=== PATIENT | male | born 1950 | race Caucasian/White ===

== ENCOUNTER 2017-08-02 10:01 | Emergency (ER) | payer BC, OTHER ==
[2017-08-02 10:17] VITALS: BP 111/59; BMI 24.1
--- NOTE | 2017-08-02 10:38 | DR.GENAD ---
HPI - HPI Comment HPI Comment: NO SOB, SOME DYSPHAGIA NOTED. NO BLEEDING. HISTORY LIVER CIRRHOSIS. CURRENTLY WORKING WITH HIS DOCTOR FOR LIVER TRANSPLANT. CURRENT SYMTOM STARTED 2 DAYS AGO. - Complaint/Symptoms Chief Complaint Doctors Comments: PATIENT HAVE SENSATION OF SOMETHING AT BACK OF HIS TONGUE GOING INTO THE THROAT. Chief Complaint:: "something in my throat or on my tongue it started two days ago" - Nurses notes reviewed Nurses Notes Review: Yes - Source History Provided: Patient - Mode of Arrival Mode of Arrival: Ambulatory - Timing Onset of Chief Complaint: 07/31/17 Came on: Suddenly - Duration Duration: Constant Duration: Days - Severity Severity: Moderate PMH - PMH Past Medical History: Yes Past Medical History: Hypertension Past Medical History Comment: Liver failure, Past Surgical History: Yes Surgical History: Appendectomy, Cholecystectomy Past Surgical History Comment: Right knee, pacemaker - Family History History of Family Medical Conditions: No - Social History Does patient currently use any type of tobacco product: No Have you used tobacco products in the last 12 months: No Type of Tobacco Use: None Does any household member use tobacco: No Alcohol Use: None Do you use any recreational Drugs:: No Lives With: Family Lives Where: Home - infectious screening In the last 2 months have you had wt loss of >10#?: NO Have you had fever, night sweats or hemotysis?: No Have you traveled outside the country in the last 6 months?: No Isolation: Standard ROS - Review of Systems Constitutional: Weakness, Fatigue. negative: Chills, Fever Eyes: negative: Eye Pain, Discharge ENTM: Throat Pain, Throat Swelling (FEEL SOMETHING STUCK AT BACK OF MOUTH AT BASE OF OF TONGUE.). negative: Ear Pain, Nose Discharge, Nose Congestion, Mouth Swelling Respiratoy: Short of Breath. negative: Productive Cough, Non-Productive Cough, Wheezing, Hemoptysis Cardiovascular: negative: Chest Pain Gastrointestinal/Abdominal: Abdominal Pain. negative: Nausea Genitourinary: negative: Dysuria, Hematuria Neurological: Headache, Weakness, Dizziness Musculoskeletal: Muscle Pain Integumentary: Dryness, Itching Hematologic/Lymphatic: Easy Bleeding, Easy Bruising All Other Systems: Reviewed and Negative PE - Vital Signs Vitals: Temperature 98.1 F Pulse Rate 75 Respiratory Rate 18 Blood Pressure 111/59 O2 Sat by Pulse Oximetry 100 - General Limitations: No Limitations General Appearance: Alert, In Distress (MILD) - Head Head Exam: Normal Inspection - Eyes Eye exam: PERRL, EOMI. negative: Scleral Icterus, Conjunctival Injection - ENT ENT Exam: Normal External Ear Exam External Ear Exam: Normal External Inspection TM/Canal Exam: Bilateral Normal Nose Exam: Normal Nose Exam Mouth Exam: Normal Inspection Throat Exam: Normal Inspection - Neck Neck Exam: Trachea Midline - Chest Chest Inspection: Symmetric Chest Wall Rise - Respiratory Respiratory Exam: Normal Lung Sounds Bilat Respiratory Exam: Bilateral Rhonchi, Lower Rhonchi - Cardiovascular Cardiovascular Exam: Regular Rate, Normal Rhythm, Normal Heart Sounds - Abdominal Exam Abdominal Exam: Normal Bowel Sounds, Soft, Tenderness Abdominal Tenderness: Diffuse, Moderate - Extremities Extremities Exam: Normal Inspection - Back Back Exam: Normal Inspection - Neurologic Neurological Exam: Alert, Oriented X3 - Psychiatric Psychiatric Exam: Anxious - Skin Skin Exam: Erythema MDM - Additional Information Additional Information Obtained From: Family - Differential Diagnosis Differential Diagnosis: PHARYNGITIS, THROAT MASS, FOOD STUCK IN THROAT Course - Treatment Treatment: SEE ORDERS. PATIENT HAVE SODIUM THAT IS LOW. DO NOT WISH TO STAY IN HOSPITAL WILL GO TO HIS DOCTOR WHO IS OUT OF TOWN. HE AND HIS WILL TALK TO HIS DR. THEY DONT WANT ME TO DR. TO HIS DR. HE IS DISCHARGE AMA. - Education/Counseling Education/Counseling: Patient, Family, Education Educated On: Diagnosis ROR - Labs Reviewed Laboratory Results Reviewed?: Yes Result Diagrams: 08/02/17 10:45 08/02/17 10:45 Laboratory: WBC 7.6 X10^3/uL (3.6-10.0) 08/02/17 10:45 RBC 2.63 X10^6/uL (4.7-6.0) L 08/02/17 10:45 Hgb 7.3 g/dL (13.5-18.0) L 08/02/17 10:45 Hct 22.0 % (42.0-54.0) L 08/02/17 10:45 MCV 83.6 fL (80.0-100.0) 08/02/17 10:45 MCH 27.8 pg (27.0-34.0) 08/02/17 10:45 MCHC 33.2 g/dL (33.0-35.0) 08/02/17 10:45 RDW 20.4 % (11.6-16.5) H 08/02/17 10:45 Plt Count 194 X10^3/uL (150.0-450.0) 08/02/17 10:45 Plt Count Comment Adequate (ADEQUATE) 08/02/17 10:45 MPV 8.3 fL (7.4-11.0) 08/02/17 10:45 Neut % 76.3 % (42.0-75.0) H 08/02/17 10:45 Lymph % 7.7 % (21.0-51.0) L 08/02/17 10:45 [place] % 15.5 % (0.0-13.0) H 08/02/17 10:45 Eos % 0.0 % (0.9-2.9) L 08/02/17 10:45 Baso % 0.5 % (0.2-1.0) 08/02/17 10:45 Neut # 5.8 x10^3/uL (2.2-4.8) H 08/02/17 10:45 Lymph # 0.6 X10^3/uL (1.3-2.9) L 08/02/17 10:45 [place] # 1.2 x10^3/uL (0.3-0.8) H 08/02/17 10:45 Eos # 0.0 x10^3/uL (0.0-0.2) 08/02/17 10:45 Baso # 0.0 X10^3/uL (0.0-0.1) 08/02/17 10:45 Absolute Nucleated RBC 0.0 /100WBC 08/02/17 10:45 Plt Morphology Comment Normal (NORMAL) 08/02/17 10:45 RBC Morphology Abnormal (NORMAL) 08/02/17 10:45 Hypochromasia 2+ A 08/02/17 10:45 Poikilocytosis Slight A 08/02/17 10:45 Anisocytosis 1+ A 08/02/17 10:45 Microcytosis Slight A 08/02/17 10:45 Target Cells Slight A 08/02/17 10:45 Sodium 124 mmol/L (136-145) L* 08/02/17 10:45 Corrected Sodium TNP 08/02/17 10:45 Potassium 5.2 mmol/L (3.5-5.1) H 08/02/17 10:45 Chloride 91 mmol/L (98-107) L 08/02/17 10:45 Carbon Dioxide 23.2 mmol/L (21-32) 08/02/17 10:45 BUN 37 mg/dL (7-18) H 08/02/17 10:45 Creatinine 1.35 mg/dL (0.70-1.30) H 08/02/17 10:45 Est GFR (MDRD) Af Amer > 60 (>60) 08/02/17 10:45 Est GFR (MDRD) Non-Af 56 (>60) L 08/02/17 10:45 Glucose 109 mg/dL (65-99) H 08/02/17 10:45 Calcium 8.8 mg/dL (8.5-10.1) 08/02/17 10:45 Corrected Calcium TNP 08/02/17 10:45 Total Bilirubin 1.00 mg/dL (0.2-1.0) 08/02/17 10:45 AST 19 Units/L (15-37) 08/02/17 10:45 ALT 16 Units/L (12-78) 08/02/17 10:45 Alkaline Phosphatase 119 Units/L (46-116) H 08/02/17 10:45 Total Protein 8.0 g/dL (6.4-8.2) 08/02/17 10:45 Albumin 3.5 g/dL (3.4-5.0) 08/02/17 10:45 Globulin 4.5 g/dL (2.5-4.5) 08/02/17 10:45 Albumin/Globulin Ratio 0.8 Ratio (1.1-2.1) L 08/02/17 10:45 - XRAY XRAY Interpreted by: Radiologist XRAY Findings: REPORT DISCUSS WITH PATIENT. - Diagnosis Discharge Problem: Throat pain, Hyponatremia Dysphagia Qualifiers: Dysphagia type: unspecified Qualified Code(s): R13.10 - Dysphagia, unspecified Liver cirrhosis Qualifiers: Hepatic cirrhosis type: unspecified hepatic cirrhosis Ascites presence: with ascites Qualified Code(s): K74.60 - Unspecified cirrhosis of liver - Discharge Plan Disposition: AGAINST MEDICAL ADVICE Condition: Stable - Follow ups/Referrals Follow ups/Referrals: NFD,None [Primary Care Provider] - 3 days - Instructions Instructions: Therapeutic Phlebotomy, Care After, Hyponatremia, Cirrhosis Additional Instructions: RETURN TO [facility] IF WORSE. YOU ARE DISCHARGE AMA/ AGAINST MEDICAL ADVICE.
[2017-08-02 11:05] LABS: BLOOD UREA NITROGEN 37 mg/dL (7-18); CALCIUM 8.8 mg/dL (8.5-10.1); CARBON DIOXIDE 23.2 mmol/L (21-32); CHLORIDE 91 mmol/L (98-107); CREATININE 1.35 mg/dL (0.70-1.30); eGFR BLACK RACES > 60 (>60); eGFR NON BLACK RACES 56 (>60)
[2017-08-02 11:08] LABS: BASOPHILS % (AUTO) 0.5 % (0.2-1.0); HEMOGLOBIN 7.3 g/dL (13.5-18.0); LYMPHOCYTES # (AUTO) 0.6 X10^3/uL (1.3-2.9); LYMPHOCYTES % (AUTO) 7.7 % (21.0-51.0); MEAN CORPUSCULAR HEMOGLOBIN 27.8 pg (27.0-34.0); MEAN CORPUSCULAR HGB CONC 33.2 g/dL (33.0-35.0); MEAN CORPUSCULAR VOLUME 83.6 fL (80.0-100.0); MEAN PLATELET VOLUME 8.3 fL (7.4-11.0); MONOCYTES # (AUTO) 1.2 x10^3/uL (0.3-0.8); MONOCYTES % (AUTO) 15.5 % (0.0-13.0); NEUTROPHILS # (AUTO) 5.8 x10^3/uL (2.2-4.8); NEUTROPHILS % (AUTO) 76.3 % (42.0-75.0); PLATELET COUNT 194 X10^3/uL (150.0-450.0); RED BLOOD COUNT 2.63 X10^6/uL (4.7-6.0); RED CELL DISTRIBUTION WIDTH 20.4 % (11.6-16.5); WHITE BLOOD COUNT 7.6 X10^3/uL (3.6-10.0)
[2017-08-02 11:09] LABS: ALANINE AMINOTRANSFERASE 16 Units/L (12-78); ALBUMIN 3.5 g/dL (3.4-5.0); ALKALINE PHOSPHATASE 119 Units/L (46-116); ASPARTATE AMINO TRANSFERASE 19 Units/L (15-37)
[2017-08-02 11:11] LABS: SODIUM 124 mmol/L (136-145)
[2017-08-02 11:27] LABS: HYPOCHROMASIA 2+; PLATELET MORPHOLOGY COMMENT NORMAL (NORMAL)
[2017-08-02 11:28] LABS: ANISOCYTOSIS 1+; MICROCYTOSIS SLIGHT; POIKILOCYTOSIS SLIGHT
[2017-08-02 11:29] LABS: TARGET CELLS SLIGHT
--- NOTE | 2017-08-02 11:41 | CT ---
STUDY: CT SOFT TISSUE NECK WITHOUT CONTRAST HISTORY: Patient states something on tongue or throat feels like can't swallow starting 2 days ago. Comparison: None. Technique: Multiple axial images of the soft tissue neck were obtained from skull base to the aortic arch without the administration of IV contrast. Sagittal and coronal reformats were performed and re viewed. Findings: There is a cardiac pacemaker in place. A catheter is identified traversing the subcutaneous soft tissues of the right chest wall, projecting into the lower portion of the right neck. The visualized portions of the posterior fossa and orbits are unremarkable. The parotid glands, submandibular glands, and thyroid gland are unremarkable in their nonenhanced purnima earance. The carotid space on the right and left is unremarkable. No pathologically enlarged lymph nodes are identified in the neck. The prevertebral and paraspinous regions are unremarkable. The oral cavity, oropharynx, and tongue h ave a normal nonenhanced appearance. No discrete mass is identified. The nasopharynx and hypopharynx are unremarkable. The larynx appears symmetric. The vascular structures are unremarkable. The aortic arch is unremarkable. Several enlarged lymph n odes are identified the mediastinum, measuring up to 2.0 cm. The bony structures appear intact. The visualized portions of the lung apex on the right and left are unremarkable as well. IMPRESSION: 1. Limited CT examination of the neck to the absence of IV contrast. 2. No evidence of acute abnormality involving the soft tissues of the neck. Specifically, no signific ant abnormality is identified within the oral cavity or base of tongue. 3. Enlarged lymph nodes in the mediastinum. Clinical correlation is recommended. 4. Correlation with direct visualization of base of tongue is recommended. 5. If there is strong clinical concern for swallowing dysfunction, would consider of barium swallow e xamination for further evaluation. Reported By:
== END 2017-08-02 12:36 | disposition left against medical advice (07) ==
LOC: ER 10:32
DX: R13.10 Dysphagia, unspecified (principal); R07.0 Pain in throat; E87.1 Hypo-osmolality and hyponatremia; K74.60 Unspecified cirrhosis of liver
CPT/HCPCS: 36415; 70490; 80053; 85025; 99282; 99284